=== PATIENT | female | born 1970 | race Caucasian/White ===

== ENCOUNTER 2018-12-06 17:22 | Emergency (ER) | payer SELFPAY ==
[~2018-12-06] VITALS: Ht 160 cm; Wt 68.0 kg
[2018-12-06] MEDS ORDERED: KETOROLAC 60MG/2ML VIAL IM ONE (20:00)
[2018-12-06 22:18] VITALS: BP 127/84
== END 2018-12-06 22:23 | disposition home or self-care (01) ==
LOC: ER 17:22
DX: G89.29 Other chronic pain (principal); M79.662 Pain in left lower leg; M79.661 Pain in right lower leg; M79.642 Pain in left hand; M79.641 Pain in right hand; F32.9 Major depressive disorder, single episode, unspecified; Z98.890 Other specified postprocedural states
CPT/HCPCS: 96372; 99283; J1885